=== PATIENT | female | born 1995 | race African-American/Black ===

== ENCOUNTER 2016-08-13 13:50 | Outpatient (CLI) | payer MEDICAID ==
[~2016-08-13] VITALS: Ht 167.6 cm; Wt 67.2 kg
[~2016-08-13 13:50] MED LIST: HYDR-3240 PO
[2016-08-13 15:03] VITALS: BP 109/64
[2016-08-13 15:11] LABS: PATH.CAST-FLAG NOT PRESENT; SPERM-FLAG NOT PRESENT; SRC-FLAG NOT PRESENT; XTAL-FLAG NOT PRESENT; YLC-FLAG NOT PRESENT
== END 2016-08-13 15:35 | disposition home or self-care (01) ==
LOC: LDOP 13:50
PROVIDERS: ATTEND Obstetrics & Gynecology
DX: O26.892 Other specified pregnancy related conditions, second trimester (principal); O99.332 Smoking (tobacco) complicating pregnancy, second trimester; R10.30 Lower abdominal pain, unspecified; F17.200 Nicotine dependence, unspecified, uncomplicated; Z3A.19 19 weeks gestation of pregnancy
CPT/HCPCS: 59025; 81001; 87086; 99211; G0463

== ENCOUNTER 2016-12-12 11:05 | Inpatient (IN) | payer MEDICAID ==
[~2016-12-12] VITALS: Ht 167.6 cm; Wt 93.6 kg
[2016-12-12 12:13] VITALS: BP 158/106
[2016-12-12] MEDS: LACTATED RINGERS 1,000 ML IV SCH ×3 (13:25→15:20)
[2016-12-12] MEDS ORDERED: OXYTOCIN 30U/ 0.9% NaCL 500ML 500 ML IV ONE (13:29)
[2016-12-12] MEDS ORDERED: D5%-LACTATED RINGERS 1,000 ML IV SCH (13:29)
[2016-12-12] MEDS ORDERED: ONDANSETRON 2MG/ML, 2ML IVPush PRN (13:30)
[2016-12-12] MEDS ORDERED: FENTANYL PF 100 MCG/2ML IV PRN (13:30)
[2016-12-12] MEDS ORDERED: CALCIUM CARBONATE 500 MG TAB.CHEW PO PRN (13:30)
[2016-12-12] MEDS ORDERED: FENTANYL PF 100 MCG/2ML IVPush PRN (13:30)
[2016-12-12] MEDS ORDERED: NEWBORN KIT ONE (13:34)
[2016-12-12] MEDS ORDERED: LIDOCAINE 1%, 20ML ONE ×2 (13:34→15:10)
[2016-12-12] MEDS ORDERED: MISOPROSTOL 200 MCG TABLET ONE (13:34)
[2016-12-12] MEDS ORDERED: OXYTOCIN 30U/ 0.9% NaCL 500ML 500 ML ONE (13:34)
[2016-12-12] MEDS ORDERED: FENTANYL PF 100 MCG/2ML ONE (13:35)
[2016-12-12 14:05] LABS: HEMATOCRIT 38.1 % (34.6-47.8); HEMOGLOBIN 12.7 g/dL (11.7-16.4); WHITE BLOOD COUNT 15.2 x10^3/uL (3.4-10)
[2016-12-12] MEDS ORDERED: FENTANYL/BUPIV./NS/PF 250 ML EPIDCONT ONE ×2 (15:06→15:10)
[2016-12-12] MEDS ORDERED: BUPIVACAINE/PF 0.25% ONE (15:06)
[2016-12-12] MEDS ORDERED: LIDOCAINE/PF 1.5%-EPI 1:200K, 30ML ONE ×2 (15:06→15:10)
[2016-12-12] MEDS ORDERED: PREN1TAB10 PO (16:27)
[2016-12-12] MEDS: OXYTOCIN 30U/ 0.9% NaCL 500ML 500 ML IV SCH ×6 (17:47→23:31)
[2016-12-12] MEDS ORDERED: ONDANSETRON 2MG/ML, 2ML IV PRN (18:00)
[2016-12-12] MEDS ORDERED: CARBOPROST TROMETHAMINE 250 MCG/ML, 1ML IM PRN (18:00)
[2016-12-12] MEDS ORDERED: ACETAMINOPHEN 325 MG TABLET PO PRN ×2 (18:00)
[2016-12-12] MEDS ORDERED: OXYcodone IR 5MG TABLET PO PRN (18:00)
[2016-12-12] MEDS ORDERED: OXYcodone/APAP 5/325MG TABLET PO PRN (18:00)
[2016-12-12] MEDS ORDERED: OXYTOCIN 10 UNITS/ML, 1ML IM PRN (18:00)
[2016-12-12] MEDS ORDERED: LACTATED RINGERS 1,000 ML IV SCH (19:20)
[2016-12-12] MEDS ORDERED: FENTANYL/BUPIV./NS/PF 250 ML EPIDCONT SCH (19:20)
[2016-12-12] MEDS ORDERED: LACTATED RINGERS 1,000 ML IVBOLUS PRN (19:30)
[2016-12-12 19:45] VITALS: BP 126/88
[2016-12-12] MEDS ORDERED: FLU VACC QS2017-18 (36MOS+) UP/PF 0.5 ML IM-VACC ONE (21:00)
[2016-12-12] MEDS: NICOTINE 7 MG/24 HR PATCH.TD24 TD SCH (21:22)
[2016-12-13 00:15] VITALS: BP 124/67
[2016-12-13] MEDS: OXYTOCIN 30U/ 0.9% NaCL 500ML 500 ML IV SCH ×5 (00:57→23:47)
[2016-12-13 04:20] VITALS: BP 120/75
[2016-12-13 04:59] LABS: HEMATOCRIT 33.1 % (34.6-47.8); HEMOGLOBIN 11.1 g/dL (11.7-16.4); WHITE BLOOD COUNT 17.2 x10^3/uL (3.4-10)
[2016-12-13] MEDS ORDERED: PRENATAL VIT/IRON/FA 1 EACH TABLET ONE (07:42)
[2016-12-13] MEDS: DOCUSATE 100 MG CAPSULE PO PRN ×2 (07:51→20:22)
[2016-12-13] MEDS: PRENATAL VIT/IRON/FA 1 EACH TABLET PO SCH (07:51)
[2016-12-13 08:00] VITALS: BP 135/82
[2016-12-13] MEDS: IBUPROFEN 800 MG TABLET PO PRN ×2 (08:02→20:22)
[2016-12-13 12:00] VITALS: BP 137/86
[2016-12-13] MEDS ORDERED: HYDROcodone/APAP 5/325 TABLET PO PRN (13:00)
[2016-12-13 19:45] VITALS: BP 140/85
[2016-12-13] MEDS: NICOTINE 7 MG/24 HR PATCH.TD24 TD SCH (20:23)
[2016-12-13 23:30] VITALS: BP 139/85
[2016-12-14 08:35] VITALS: BP 142/92
[2016-12-14] MEDS: DOCUSATE 100 MG CAPSULE PO PRN (09:00)
[2016-12-14] MEDS: PRENATAL VIT/IRON/FA 1 EACH TABLET PO SCH (09:00)
[2016-12-14] MEDS: IBUPROFEN 800 MG TABLET PO PRN (09:00)
[2016-12-14] MEDS ORDERED: ibupro (12:31)
[2016-12-14] MEDS ORDERED: IBUP-1223 PO (12:32)
[2016-12-14] MEDS ORDERED: OXYC-302 PO (12:33)
== END 2016-12-14 14:00 | disposition home or self-care (01) | DRG 775 ==
LOC: LDOP 11:05 → LDIP 13:34 → 2NW 19:30
PROVIDERS: ADMIT Obstetrics & Gynecology; ATTEND Obstetrics & Gynecology
PROC: 10E0XZZ Delivery of Products of Conception, External Approach (ICD-10-PCS; principal; 2016-12-12)
DX: O80 Encounter for full-term uncomplicated delivery (principal); Z37.0 Single live birth; Z3A.38 38 weeks gestation of pregnancy
CPT/HCPCS: 36415; 85025; 86850; 86900; 90686; J3010; J3490; J7120

== ENCOUNTER 2020-07-30 23:25 | Emergency (ER) | payer MEDICAID ==
[~2020-07-30] VITALS: Ht 170.2 cm; Wt 75.0 kg
[~2020-07-30 23:25] MED LIST changes: +HYDR-2214 PO; -HYDR-3240 PO; +IBUP-1223 PO; +OXYC1TAB14 PO; +PREN1TAB10 PO; +ibupro
--- NOTE | 2020-07-30 23:43 | NUR ---
BIB EMS. PLACED ON HOLD BY [employer]. PT VERBILIZED WANTING TO HARM HERSELF TO HER MOTHER. PT HAS HISTORY OF SUICIDE ATTEMPTS IN THE PAST. HEALED CUTS NOTED ON WRISTS AND LEFT THIGH. VERBILIZED SI AT THIS TIME. PLACED ALL BELONGINGS IN BAG, ERP EVALED PT. PT IN LINE OF SIGHT OF SITTER
[2020-07-31] LABS: BASOPHILS % (AUTO) 0 % (0-1); EOSINOPHILS % (AUTO) 2 % (1-7); LYMPHOCYTES % (AUTO) 55 % (22-44); MEAN CORPUSCULAR HEMOGLOBIN 37.2 pg (27.0-34.8); MEAN CORPUSCULAR HGB CONC 35.9 g/dL (32.4-35.8); MEAN PLATELET VOLUME 7.1 fL (7.4-10.4); MONOCYTES % (AUTO) 6 % (2-9); NEUTROPHILS % (AUTO) 38 % (42-75); PLATELET COUNT 327 x10^3/uL (130-400); RED BLOOD COUNT 3.69 x10^6/uL (3.82-5.3); RED CELL DISTRIBUTION WIDTH 13.8 % (9.6-15.2)
[2020-07-31 00:10] LABS: ALANINE AMINOTRANSFERASE 28 U/L (12-78); ALBUMIN 3.7 g/dL (3.4-5.0); ANION GAP 7 mmol/L (5-15); CALCIUM 8.7 mg/dL (8.5-10.1); CHLORIDE 110 mmol/L (98-107); CREATININE 0.99 mg/dL (0.55-1.02); SALICYLATE LEVEL 3.6 mg/dL (2.8-20.0)
[2020-07-31 00:12] LABS: ALKALINE PHOSPHATASE 85 U/L (45-117); BILIRUBIN,TOTAL 0.4 mg/dL (0.2-1.0); TOTAL PROTEIN 7.6 g/dL (6.4-8.2)
[2020-07-31 00:30] LABS: HCG UR SG 1.017 (1.003-1.030)
[2020-07-31 00:33] LABS: AMPHETAMINE SCREEN, URINE Negative (Negative); BARBITURATE SCREEN, URINE Negative (Negative); BENZODIAZEPINE SCREEN, URINE Positive (Negative); CANNABINOID SCREEN, URINE Positive (Negative); COCAINE SCREEN, URINE Negative (Negative); METHADONE SCREEN, URINE Negative (Negative); OPIATE SCREEN, URINE Negative (Negative)
--- NOTE | 2020-07-31 01:31 | NUR ---
PT RESTING IN [facility], NO NEEDS AT THIS TIME. BELONINGS LIST MADE, BELONGINGS STILL IN SECURITY LOCKER
--- NOTE | 2020-07-31 01:40 | NUR ---
REPORT FROM MEHRDAD, TRANSFER OF CARE. PT UPSET STATING SHE NEVER WOULD HAVE COME HERE IF SHE KNEW SHE WAS GOING TO HAVE TO GO TO A PLACE. PT MEDICATED PER APR AND PROVIDED APPLE JUICE, SITTER IN SIGHT NO FURTHER NEEDS AT THIS TIME
[2020-07-31] MEDS ORDERED: LORazepam 1MG TABLET PO ONE (02:00)
[2020-07-31] MEDS ORDERED: LORazepam 1MG TABLET ONE (02:01)
--- NOTE | 2020-07-31 02:50 | NUR ---
PT RESTING ON GURNEY EYES CLOSED, NO NEEDS AT THIS TIME. SITTER IN SIGHT FOR SAFETY
--- NOTE | 2020-07-31 04:08 | NUR ---
PT RESTING ON GURNEY EYES CLOSED, NO NEEDS AT THIS TIME. SITTER IN SIGHT FOR SAFETY
--- NOTE | 2020-07-31 04:08 | NUR ---
PACKET FAXED TO [facility]
--- NOTE | 2020-07-31 05:28 | NUR ---
PT RESTING ON GURNEY EYES CLOSED, NO NEEDS AT THIS TIME. SITTER IN SIGHT FOR SAFETY
--- NOTE | 2020-07-31 05:40 | NUR ---
PT AWAKE AND REQ MORE MEDS SHE'S ANNOYED WITH EVERYONE AND TIRED OF HEARING SOUNDS. ERP UPDATED
--- NOTE | 2020-07-31 06:28 | NUR ---
Assist RN: medicated patient per mar. No other needs/complaints at this time.
--- NOTE | 2020-07-31 06:54 | NUR ---
REPORT FROM KEILA, ASSUME CARE OF PT AT THIS TIME.
--- NOTE | 2020-07-31 06:54 | NUR ---
BEDSIDE REPORT TO LENNY AT THIS TIME TRANSFER OF CARE
--- NOTE | 2020-07-31 07:04 | NUR ---
PT SLEEPING, NAD. VSS. SITTER AT DOORWAY.
--- NOTE | 2020-07-31 08:42 | NUR ---
ED DIET TRAY PROVIDED. PT SLEEPING, NAD. SITTER AT DOORWAY.
[2020-07-31 10:06] VITALS: BP 94/54
--- NOTE | 2020-07-31 10:07 | NUR ---
VSS/UPDATED IN COMPUTER. MONITORING EQUIPMENT REMOVED AT THIS TIME. SITTER AT DOORWAY. PT COOPERATIVE WITH CARE, PLEASANT. PT STATES NOT FEELING SUICIDAL AT THIS TIME. PT ADMITS TO [facility] LAST NIGHT WITH OD, STATING HER ANXIETY GETS TOO MUCH AND SHE WOULD LIKE TO GET A PRESCRIPTION FOR MEDICATION TO HELP THAT. PT DOES NOT SEE PSYCHIATRIST AND HAS NOT SOUGHT OUT TREATMENT BEFORE FOR ANXIETY.
[2020-07-31] MEDS ORDERED: SERTRALINE 50MG TABLET ONE (12:27)
[2020-07-31] MEDS ORDERED: SERTRALINE 50MG TABLET PO ONE (12:30)
--- NOTE | 2020-07-31 12:56 | NUR ---
MEDS GIVEN PER NUCLEAR FUELS RECLAMATION ENGINEER ACOSTA ORDER. BELONGINGS RETURNED.
--- NOTE | 2020-07-31 13:20 | NUR ---
PT DISCHARGED HOME WITH TAXI VOUCHER. Addendum: 07/31/20 at 1322 by CHIDI DISCHARGE INSTRUCTIONS INCLUDED SCRIPT X 2, MENTAL HEALTH/COUNSELING SERVICES RESOURCE PAGE WITH REFERRAL.
== END 2020-07-30 23:59 | disposition home or self-care (01) ==
LOC: ED 23:55
DX: T14.91XA Suicide attempt, initial encounter (principal); T40.2X2A Poisoning by other opioids, intentional self-harm, initial encounter; G43.909 Migraine, unspecified, not intractable, without status migrainosus; X83.8XXA Intentional self-harm by other specified means, initial encounter; Y93.89 Activity, other specified; Y92.89 Other specified places as the place of occurrence of the external cause; Y99.8 Other external cause status
CPT/HCPCS: 36415; 80053; 80299; 80307; 80320; 80329; 81025; 85025; 99285; G0480; Q0177

== ENCOUNTER 2020-09-29 19:25 | Emergency (ER) | payer MEDICAID ==
[~2020-09-29] VITALS: Ht 172.7 cm; Wt 72.0 kg
--- NOTE | 2020-09-29 19:48 | NUR ---
pt c/o of tamponstuck in vagina for a couple days/ pt states she is still on her period and reports this period being heavier and more painful than normal. pt states she has been feeling light headedness today. pa at bedside for eval. atached to monitors. vss. nadn. bed in low position, rails engaged. call light on lap.
--- NOTE | 2020-09-29 19:53 | NUR ---
PA AT BEDSIDE PERFORMING PROCEDURE. GYNE CART AT BEDSIDE.
[2020-09-29 20:20] LABS: BASOPHILS % (AUTO) 1 % (0-1); EOSINOPHILS % (AUTO) 1 % (1-7); LYMPHOCYTES % (AUTO) 63 % (22-44); MEAN CORPUSCULAR HGB CONC 34.3 g/dL (32.4-35.8); MEAN PLATELET VOLUME 6.9 fL (7.4-10.4); MONOCYTES % (AUTO) 9 % (2-9); NEUTROPHILS % (AUTO) 28 % (42-75); PLATELET COUNT 321 x10^3/uL (130-400); RED BLOOD COUNT 3.79 x10^6/uL (3.82-5.3); RED CELL DISTRIBUTION WIDTH 14.1 % (9.6-15.2)
[2020-09-29 20:29] LABS: ALANINE AMINOTRANSFERASE 29 U/L (12-78); ALBUMIN 3.9 g/dL (3.4-5.0); ANION GAP 8 mmol/L (5-15); CALCIUM 8.4 mg/dL (8.5-10.1); CHLORIDE 110 mmol/L (98-107); CREATININE 0.85 mg/dL (0.55-1.02)
[2020-09-29 20:33] LABS: ALKALINE PHOSPHATASE 83 U/L (45-117); BILIRUBIN,TOTAL 0.3 mg/dL (0.2-1.0); TOTAL PROTEIN 8.1 g/dL (6.4-8.2)
--- NOTE | 2020-09-29 20:39 | NUR ---
PT URINE DIONISIO COLORED AND CONCENTRATED GIVING PT WATER.
[2020-09-29 20:50] LABS: MICROSCOPIC AUTO
[2020-09-29] MEDS ORDERED: IBUPROFEN 800 MG TABLET ONE (21:18)
--- NOTE | 2020-09-29 21:19 | NUR ---
pt refused ibuprofen
[2020-09-29] MEDS ORDERED: IBUPROFEN 800 MG TABLET PO ONE (21:30)
[2020-09-29 21:50] VITALS: BP 137/84
== END 2020-09-29 21:52 | disposition home or self-care (01) ==
LOC: ED 21:15
DX: R42 Dizziness and giddiness (principal); G43.909 Migraine, unspecified, not intractable, without status migrainosus
CPT/HCPCS: 36415; 80053; 81001; 84703; 85025; 87086; 99283